=== PATIENT | male | born 1995 | race African-American/Black ===

== ENCOUNTER 2023-12-18 15:33 | Emergency (ER) | payer BC ==
[~2023-12-18] VITALS: Ht 180.3 cm; Wt 77.1 kg
[2023-12-18 16:13] VITALS: O2SAT 100
[2023-12-18] MEDS: BACITRACIN ZINC OINT UDPKT TOP ONE (17:30)
[2023-12-18] MEDS: TETANUS, DIPHTHERIA, PERTUSSIS VAC/PF 0.5ML (>10YR OLD) IM ONE (17:30)
[2023-12-18] MEDS: LIDOCAINE HCL/PF 1% 10 MG/ML 5ML VIAL INFIL ONE (17:30)
[2023-12-18 18:57] VITALS: BP 134/64; PULSE 52; RESP 16; TEMP 98.3
== END 2023-12-18 18:56 | disposition home or self-care (01) ==
LOC: ER 15:50
DX: L03.012 Cellulitis of left finger (principal); Z98.890 Other specified postprocedural states; Z88.8 Allergy status to other drugs, medicaments and biological substances
CPT/HCPCS: 73140; 11740; 99284; Z7610 ×4; 99283

== ENCOUNTER 2024-11-08 13:51 | Emergency (ER) | payer MEDICAID, BC ==
[~2024-11-08] VITALS: Ht 180.3 cm; Wt 77.3 kg
[2024-11-08 13:56] VITALS: O2SAT 99
[2024-11-08] MEDS ORDERED: OFLO5DRO4 LEFT EAR (14:58)
[2024-11-08] MEDS ORDERED: IBUP-2029 MT (15:00)
[2024-11-08 15:28] VITALS: BP 111/66; PULSE 68; RESP 18; TEMP 36.8; O2SAT 98
== END 2024-11-08 15:29 | disposition home or self-care (01) ==
LOC: ER 13:51
DX: H61.23 Impacted cerumen, bilateral (principal); Z88.0 Allergy status to penicillin
CPT/HCPCS: 69210; 99283; 99284